=== PATIENT | female | born 1990 | race Two or more races ===

== ENCOUNTER 2016-08-04 20:07 | Inpatient (IN) | payer OTHER ==
[~2016-08-04] VITALS: Ht 160 cm; Wt 79.4 kg
[~2016-08-04 20:07] MED LIST: ABILIFY10 MG PO; ABILIFY20 MG PO; ABILIFY30 MG PO; ARIPIPRAZOLE10 MG PO; CILOXAN 0.100 DROP/5 BOTH EYES; CIPRO250 MG PO; CITALOPRAM HBR20 MG PO; DEPAKOTE ER250 MG PO; DEPAKOTE500 MG PO; DIVALPROEX SOD250 M1 PO; DIVALPROEX SOD250 MG PO; DIVALPROEX SOD500 M1 PO; DIVALPROEX SOD500 MG PO; ESKALITH300 M1 PO; KEFLEX500 MG PO; LIDOCAINE20 MG/1 M5 MM; LITHIUM CARBON300 M1; LITHIUM CARBON300 MG PO; LITHIUM CARBON600 MG PO; LITHOBID300 MG PO; LORATADINE10 M2 PO; MOBIC7.5 MG PO; NAPROSYN500 MG PO; NO HOME MEDS; NOHOMEMEDS; OLANZAPINE10 MG PO; OXCARBAZEPINE150 MG PO; PALIPERIDONE ER3 MG PO; PEN-VEE K,VEET500 MG PO; PERCOCET 5/31 TABLET PO; PRENATAL VITAM1 EAC1 PO; PROZAC40 MG PO; QUETIAPINE FUM100 MG PO; RISPERDAL3 MG PO; RISPERIDONE1 MG PO; SEROQUEL100 MG PO; SEROQUEL200 MG PO; SERTRALINE HCL50 MG PO; TOPIRAMATE25 MG PO; TRAMADOL HCL50 MG PO; VALIUM5 MG PO; VENTOLIN HFA18 GM IH; VOLTAREN XR100 MG PO; WELLBUTRIN SR100 MG PO; WELLBUTRIN100 MG PO; ZINC OXIDE56.7 GM TP; ZOLOFT50 MG PO; ZOLPIDEM TARTRAT5 MG PO
[2016-08-04 22:19] LABS: ADD MIUA? YES; BILIRUBIN NEGATIVE; BLOOD MODERATE; COLOR YELLOW ((YELLOW)); GLUCOSE (STRIP) NEGATIVE; KETONES NEGATIVE; LEUKOCYTES NEGATIVE; NITRITE NEGATIVE; PROTEIN (STRIP) NEGATIVE; SPECIFIC GRAVITY 1.018 (1.000-1.030); UROBILINOGEN 0.2 MG/DL (0.2-1.0)
[2016-08-04 22:33] LABS: AMPHETAMINE NEGATIVE (500 ng/mL); BENZODIAZEPINES NEGATIVE (150 ng/mL); COCAINE NEGATIVE (150 ng/mL); METHAMPHETAMINE NEGATIVE (500 ng/mL); OPIATES (MORPHINE) NEGATIVE (100 ng/mL); PHENCYCLIDINE NEGATIVE (25 ng/mL); THC CANNABINOIDS NEGATIVE (50 ng/mL); TRICYCLIC ANTIDEPRESSANTS NEGATIVE (300 ng/mL)
[2016-08-04 22:34] LABS: BARBITURATES NEGATIVE (200 ng/mL); INTERNAL CONTROLS VALID? YES; METHADONE NEGATIVE (200 ng/mL); OXYCODONE NEGATIVE (100 ng/mL); PROPOXYPHENE NEGATIVE (300 ng/mL)
[2016-08-04] MEDS ORDERED: BIOTIN1000 MICRO PO (22:35)
[2016-08-04] MEDS ORDERED: NICODERM CQ1 EAC2 TD (22:35)
[2016-08-04 22:36] LABS: RED BLOOD CELLS 0-5 /HPF (0-5); WHITE BLOOD CELLS 0-5 /HPF (0-5)
[2016-08-04 22:37] LABS: BACTERIA RARE; CASTS NONE SEEN /LPF; CRYSTALS NONE SEEN; EPITHELIAL CELLS RARE; MUCUS RARE
[2016-08-04 22:45] LABS: HEMATOCRIT 42.5 % (36.0-46.0); MCH 26.8 PG (29.0-34.0); MCHC 32.9 G/DL (30.0-36.0); MCV 81.4 FL (83-99); MEAN PLAT.VOLUME 9.4 uM^3 (9.5-12.4); PLATELET COUNT 259 K/uL (156-360); RBC DIS.WIDTH-CV 13.3 % (11.8-14.6); RBC DIS.WIDTH-SD 38.9 % (39-53); RED BLOOD COUNT 5.22 M/uL (3.80-5.20); WHITE BLOOD COUNT 12.6 K/uL (4.1-10.2)
[2016-08-04 22:56] LABS: CHLORIDE 106 mEq/L (99-109); POTASSIUM 3.7 mEq/L (3.7-5.4); SODIUM 137 mEq/L (136-147)
[2016-08-04 22:59] LABS: GLUCOSE 102 mg/dL (70-99)
[2016-08-04 23:00] LABS: ANION GAP 12 MEQ/L (2-14); TOTAL BILIRUBIN 0.3 mg/dL (0.0-1.0)
[2016-08-04 23:01] LABS: SERUM ETHYL ALCOHOL < 10 mg/dL
[2016-08-04 23:02] LABS: ALKALINE PHOSPHATASE 50 IU/L (3-129); GFR ESTIMATE (CALCULATED) > 59 mL/min/
[2016-08-04 23:03] LABS: UREA NITROGEN (BUN) 12 mg/dL (9-23)
[2016-08-05 01:23] VITALS: BP 141/98
[2016-08-05 09:19] VITALS: BP 131/64
[2016-08-05 15:45] VITALS: BP 138/67
[2016-08-06 08:05] VITALS: BP 112/67
[2016-08-06 15:40] VITALS: BP 131/87
[2016-08-07 07:45] VITALS: BP 118/51
[2016-08-07 15:33] VITALS: BP 131/70
[2016-08-08 07:45] VITALS: BP 96/59
[2016-08-08 15:51] VITALS: BP 137/64
[2016-08-09 10:38] VITALS: BP 127/69
[2016-08-09] MEDS ORDERED: LAMICTAL25 MG PO (13:10)
== END 2016-08-09 13:42 | disposition home or self-care (01) | DRG 885 ==
LOC: EME 20:07 → EXP 20:07 → EDOF 22:28 → 1WEST 22:28
PROVIDERS: Emergency Medicine
DX: F31.2 Bipolar disorder, current episode manic severe with psychotic features (principal); F60.3 Borderline personality disorder; F41.9 Anxiety disorder, unspecified; Z91.19 Patient's noncompliance with other medical treatment and regimen; E66.9 Obesity, unspecified; Z68.32 Body mass index [BMI] 32.0-32.9, adult; F17.200 Nicotine dependence, unspecified, uncomplicated
CPT/HCPCS: 80053; 81003; 85027; 90839; 97150 GO; 97166 GO; 99281; 99284; G0480; J1630; Q0177

== ENCOUNTER 2017-07-11 16:22 | Inpatient (IN) | payer OTHER ==
[~2017-07-11] VITALS: Ht 165.1 cm; Wt 74.6 kg
[~2017-07-11 16:22] MED LIST changes: +BIOTIN1000 MICRO PO; +LAMICTAL25 MG PO; +NICODERM CQ1 EAC2 TD
[2017-07-11 17:15] LABS: HEMATOCRIT 40.2 % (36.0-46.0); MCH 26.7 PG (29.0-34.0); MCHC 32.3 G/DL (30.0-36.0); MCV 82.5 FL (83-99); MEAN PLAT.VOLUME 10.3 uM^3 (9.5-12.4); PLATELET COUNT 252 K/uL (156-360); RBC DIS.WIDTH-CV 13.1 % (11.8-14.6); RBC DIS.WIDTH-SD 39.4 % (39-53); RED BLOOD COUNT 4.87 M/uL (3.80-5.20); WHITE BLOOD COUNT 18.2 K/uL (4.1-10.2)
[2017-07-11 17:27] LABS: CHLORIDE 107 mEq/L (99-109); POTASSIUM 3.3 mEq/L (3.7-5.4); SODIUM 143 mEq/L (136-147)
[2017-07-11 17:29] LABS: GLUCOSE 113 mg/dL (70-99)
[2017-07-11 17:30] LABS: ANION GAP 11 MEQ/L (2-14)
[2017-07-11 17:32] LABS: SERUM ETHYL ALCOHOL < 10 mg/dL
[2017-07-11 17:33] LABS: GFR ESTIMATE (CALCULATED) > 59 mL/min/; UREA NITROGEN (BUN) 8 mg/dL (9-23)
[2017-07-11 17:42] LABS: QUANTITATIVE HCG < 4.0 MIU/ML
[2017-07-11 18:23] LABS: AMPHETAMINE NEGATIVE (500 ng/mL); BARBITURATES NEGATIVE (200 ng/mL); BENZODIAZEPINES NEGATIVE (150 ng/mL); COCAINE NEGATIVE (150 ng/mL); INTERNAL CONTROLS VALID? YES; METHADONE NEGATIVE (200 ng/mL); METHAMPHETAMINE NEGATIVE (500 ng/mL); OPIATES (MORPHINE) NEGATIVE (100 ng/mL); OXYCODONE NEGATIVE (100 ng/mL); PHENCYCLIDINE NEGATIVE (25 ng/mL); PROPOXYPHENE NEGATIVE (300 ng/mL); THC CANNABINOIDS NEGATIVE (50 ng/mL); TRICYCLIC ANTIDEPRESSANTS NEGATIVE (300 ng/mL)
[2017-07-12 00:15] VITALS: BP 133/73
[2017-07-12 07:56] VITALS: BP 111/56
[2017-07-12 15:35] VITALS: BP 113/67
[2017-07-13 07:29] VITALS: BP 105/59
[2017-07-13 15:50] VITALS: BP 137/78
[2017-07-14 07:50] VITALS: BP 106/58
[2017-07-14 15:24] VITALS: BP 139/64
[2017-07-15 07:55] VITALS: BP 108/62
[2017-07-15] MEDS ORDERED: DIVALPROEX SOD500 M1 PO (09:40)
[2017-07-15] MEDS ORDERED: ARIPIPRAZOLE10 MG PO (09:40)
[2017-07-15] MEDS ORDERED: COLACE100 MG PO (09:40)
== END 2017-07-15 10:49 | disposition home or self-care (01) | DRG 885 ==
LOC: EME 16:22 → 1WEST 20:54 → EDOF 20:54 → ENRESERV 07-12 00:13 → 1WEST 07-12 00:13
DX: F31.5 Bipolar disorder, current episode depressed, severe, with psychotic features (principal); F60.3 Borderline personality disorder; R73.03 Prediabetes; Z56.0 Unemployment, unspecified; R45.851 Suicidal ideations; R45.850 Homicidal ideations; F17.200 Nicotine dependence, unspecified, uncomplicated; F41.9 Anxiety disorder, unspecified
CPT/HCPCS: 80048; 84702; 85027; 90839; 97150 GO; G0480

== ENCOUNTER 2018-03-11 05:39 | Emergency (ER) | payer OTHER ==
[~2018-03-11] VITALS: Ht 162.6 cm; Wt 81.2 kg
[~2018-03-11 05:39] MED LIST changes: +COLACE100 MG PO
[2018-03-11 06:33] LABS: APPEARANCE CLEAR ((CLEAR)); BILIRUBIN NEGATIVE; BLOOD NEGATIVE; COLOR YELLOW ((YELLOW)); GLUCOSE (STRIP) NEGATIVE; KETONES 80; LEUKOCYTES NEGATIVE; NITRITE NEGATIVE; PROTEIN (STRIP) 30; UROBILINOGEN 0.2 MG/DL (0.2-1.0)
[2018-03-11 06:33] LABS: BASOPHIL (%) 0.4 % (0-1); EOSINOPHIL (%) 2.2 % (0-5); EOSINOPHIL COUNT 0.2 K/uL (0-0.3); HEMATOCRIT 39.4 % (36.0-46.0); HEMOGLOBIN 13.1 G/DL (11.9-15.5); IMMATURE GRANULOCYTE (%) 0.2 % (0.0-0.7); LYMPHOCYTE (%) 24.6 % (15-42); LYMPHOCYTE COUNT 2.6 K/uL (1.0-2.8); MCH 26.6 PG (29.0-34.0); MCHC 33.2 G/DL (30.0-36.0); MCV 80.1 FL (83-99); MONOCYTE (%) 11.2 % (3-12); MONOCYTE COUNT 1.2 K/uL (0-0.8); NEUTROPHIL (%) 61.4 % (45-76); NEUTROPHIL COUNT 6.5 K/uL (1.8-6.4); PLATELET COUNT 251 K/uL (156-360); RBC DIS.WIDTH-CV 13.2 % (11.8-14.6); RBC DIS.WIDTH-SD 38.4 % (39-53); RED BLOOD COUNT 4.92 M/uL (3.80-5.20); WHITE BLOOD COUNT 10.5 K/uL (4.1-10.2)
[2018-03-11 06:41] LABS: AMPHETAMINE NEGATIVE (500 ng/mL); BARBITURATES NEGATIVE (200 ng/mL); BENZODIAZEPINES NEGATIVE (150 ng/mL); BUPRENORPHINE NEGATIVE (10 ng/mL); COCAINE NEGATIVE (150 ng/mL); METHADONE NEGATIVE (200 ng/mL); METHAMPHETAMINE NEGATIVE (500 ng/mL); OPIATES (MORPHINE) NEGATIVE (100 ng/mL); OXYCODONE NEGATIVE (100 ng/mL); PHENCYCLIDINE NEGATIVE (25 ng/mL); PROPOXYPHENE NEGATIVE (300 ng/mL); THC CANNABINOIDS NEGATIVE (50 ng/mL); TRICYCLIC ANTIDEPRESSANTS NEGATIVE (300 ng/mL)
[2018-03-11 06:44] LABS: CHLORIDE 103 mEq/L (99-109); POTASSIUM 3.6 mEq/L (3.7-5.4); SODIUM 139 mEq/L (136-147)
[2018-03-11 06:46] LABS: GLUCOSE 91 mg/dL (70-99)
[2018-03-11 06:49] LABS: CREATININE 0.7 mg/dL (0.6-1.3); GFR ESTIMATE (CALCULATED) > 59 mL/min/; SERUM ETHYL ALCOHOL < 10 mg/dL
[2018-03-11 06:50] LABS: UREA NITROGEN (BUN) 10 mg/dL (9-23)
[2018-03-11 07:00] LABS: QUANTITATIVE HCG < 4.0 MIU/ML
[2018-03-11 11:09] VITALS: BP 126/72
== END 2018-03-11 11:10 | disposition home or self-care (01) ==
LOC: EME 05:39
PROVIDERS: Emergency Medicine
DX: F31.5 Bipolar disorder, current episode depressed, severe, with psychotic features (principal); F41.9 Anxiety disorder, unspecified; J45.909 Unspecified asthma, uncomplicated; F17.200 Nicotine dependence, unspecified, uncomplicated
CPT/HCPCS: 80048; 81003; 84702; 85025; 90832; 99281; 99284; G0480

== ENCOUNTER 2018-03-15 13:32 | Emergency (ER) | payer OTHER ==
[~2018-03-15] VITALS: Ht 162.6 cm; Wt 78.3 kg
[2018-03-15 14:49] LABS: HEMATOCRIT 38.7 % (36.0-46.0); HEMOGLOBIN 12.8 G/DL (11.9-15.5); MCH 26.9 PG (29.0-34.0); MCHC 33.1 G/DL (30.0-36.0); MCV 81.3 FL (83-99); PLATELET COUNT 228 K/uL (156-360); RBC DIS.WIDTH-CV 13.2 % (11.8-14.6); RED BLOOD COUNT 4.76 M/uL (3.80-5.20); WHITE BLOOD COUNT 9.1 K/uL (4.1-10.2)
[2018-03-15 14:59] LABS: CHLORIDE 105 mEq/L (99-109); POTASSIUM 3.8 mEq/L (3.7-5.4); SODIUM 142 mEq/L (136-147)
[2018-03-15 15:01] LABS: GLUCOSE 97 mg/dL (70-99)
[2018-03-15 15:02] LABS: AMPHETAMINE NEGATIVE (500 ng/mL); BARBITURATES NEGATIVE (200 ng/mL); BENZODIAZEPINES NEGATIVE (150 ng/mL); BUPRENORPHINE NEGATIVE (10 ng/mL); COCAINE NEGATIVE (150 ng/mL); METHADONE NEGATIVE (200 ng/mL); METHAMPHETAMINE NEGATIVE (500 ng/mL); OPIATES (MORPHINE) NEGATIVE (100 ng/mL); OXYCODONE NEGATIVE (100 ng/mL); PHENCYCLIDINE NEGATIVE (25 ng/mL); PROPOXYPHENE NEGATIVE (300 ng/mL); THC CANNABINOIDS NEGATIVE (50 ng/mL); TRICYCLIC ANTIDEPRESSANTS NEGATIVE (300 ng/mL)
[2018-03-15 15:04] LABS: SERUM ETHYL ALCOHOL < 10 mg/dL
[2018-03-15 15:05] LABS: CREATININE 0.8 mg/dL (0.6-1.3); GFR ESTIMATE (CALCULATED) > 59 mL/min/
[2018-03-15 15:06] LABS: UREA NITROGEN (BUN) 9 mg/dL (9-23)
[2018-03-15 15:08] LABS: ACETAMINOPHEN (TYLENOL) < 10 mcg/mL (10-30); SALICYLATE < 5.0 MG/DL (15-30)
[2018-03-15 16:42] LABS: APPEARANCE TURBID ((CLEAR)); BILIRUBIN SMALL; BLOOD NEGATIVE; COLOR YELLOW ((YELLOW)); GLUCOSE (STRIP) NEGATIVE; KETONES 20; LEUKOCYTES TRACE; NITRITE NEGATIVE; PROTEIN (STRIP) 100; SPECIFIC GRAVITY 1.031 (1.000-1.030)
[2018-03-15 17:12] LABS: AMORPHOUS URATES CRYSTALS 3+; BACTERIA RARE /HPF; EPITHELIAL CELLS RARE /HPF; MUCUS TRACE /LPF; RED BLOOD CELLS NONE SEEN /HPF (0-5); UCUL ADDED? NO; WHITE BLOOD CELLS RARE /HPF (0-5)
[2018-03-15 22:52] VITALS: BP 134/75
== END 2018-03-15 22:55 ==
LOC: EME 13:32
PROVIDERS: Emergency Medicine
DX: F31.5 Bipolar disorder, current episode depressed, severe, with psychotic features (principal); R45.851 Suicidal ideations; F17.200 Nicotine dependence, unspecified, uncomplicated
CPT/HCPCS: 80048; 81003; 85027; 90837; 99281; 99285; G0480